=== PATIENT | male | born 1970 | race Caucasian/White ===

== ENCOUNTER 2018-01-17 22:29 | Inpatient (IN) | payer MEDICAID, SELFPAY ==
[2018-01-17 22:29] VITALS: BMI 23.7
--- NOTE | 2018-01-17 22:40 | ED PDOC ---
HPI: Psych/Substance Abuse Time Seen by Provider: 01/17/18 22:39 Chief Complaint (Nursing): Psychiatric Evaluation Chief Complaint (Provider): crisis eval History Per: Patient, Family (daughter) Additional Complaint(s): 47 y/o M presents for crisis eval. Patient has history of IV heroin abuse and states he used earlier today. Patient also admits to intermittent use of cocaine and xanax. Patient states his plan for suicide would be to overdose on heroin. Patient has pain and swelling to left external ear that he noticed today. He offers no other complaints. PMD: none Past Medical History Reviewed: Historical Data, Nursing Documentation, Vital Signs Vital Signs: Last Vital Signs Temp 98.7 F 01/17/18 22:33 Pulse 65 01/17/18 22:33 Resp 18 01/17/18 22:33 BP Pulse Ox 94 L 01/17/18 22:33 - Medical History PMH: Bipolar Disorder, Depression, Diabetes - Surgical History Surgical History: No Surg Hx - Family History Family History: States: No Known Family Hx - Living Arrangements Living Arrangements: With Family - Social History Current smoker - smoking cessation education provided: Yes Alcohol: None Drugs: Cocaine, Opiates (IV heroin), Other (PO xanax) - Home Medications Home Medications: Ambulatory Orders Medication Instructions Recorded Gabapentin [Neurontin] 300 mg PO BID 14 Days cap 10/03/17 traZODone [Desyrel] 100 mg PO HS 14 Days tab 10/03/17 - Allergies Allergies/Adverse Reactions: Allergies Allergy/AdvReac Type Severity Reaction Status Date / Time No Known Allergies Allergy Verified 01/17/18 22:33 Review of Systems ROS Statement: Except As Marked, All Systems Reviewed And Found Negative ENT: Positive for: Other (swelling and pain to left external ear) Psych: Positive for: Suicidal ideation, Other (heroin abuse) Physical Exam - Reviewed Nursing Documentation Reviewed: Yes Vital Signs Reviewed: Yes - Physical Exam Appears: Positive for: Well, Non-toxic, No Acute Distress Skin: Negative for: Rash Eye Exam: Positive for: Normal appearance ENT: Positive for: Other (moderate swelling and erythema noted to left external ear, no mastoid tenderness, canal has moderate amount of cerumen, right ear wnl) Neck: Positive for: Normal Cardiovascular/Chest: Positive for: Regular Rate, Rhythm Respiratory: Positive for: Normal Breath Sounds - Laboratory Results Result Diagrams: 01/17/18 23:07 01/17/18 23:07 - ECG Interpretation Of ECG: Sinus bradycardia 58 bpm, no acute finding, reviewed by PA and ED attending O2 Sat by Pulse Oximetry: 94 Pulse Ox Interpretation: Normal - Other Rad CXR X-Ray: Interpreted by Me, Viewed By Me X-Ray Interpretation: no acute finding Medical Decision Making Medical Decision Makin47 year old here for crisis eval Plan: 1:1 bedside observation Crisis eval CBC CMP BAL UDS UA CXR EKG As per crisis counselor and psychiatrist litigation docket manager, Dr. Silva, patient does meet criteria for admission. Patient agrees to stay and signed himself in. Patient is medically stable for psychiatric admission. Disposition - Clinical Impression Clinical Impression: Depression, Opiate use - Patient ED Disposition Is Patient to be Admitted: Yes - Disposition Disposition Time: 23:42 Condition: FAIR Forms: Osmopure (Sami) - Pt Status Changed To: Hospital Disposition Of: Inpatient - Admit Certification Admit to Inpatient:: After my assessment, the patient will require hospitalization for at least two midnights. This is because of the severity of symptoms shown, intensity of services needed, and/or the medical risk in this patient being treated as an outpatient. Results - Lab Results Lab Results: 01/17/18 01/17/18 01/17/18 23:07 23:07 23:02 WBC 7.3 RBC 5.66 Hgb 12.6 Hct 40.6 MCV 71.8 L MCH 22.2 L MCHC 31.0 L RDW 14.0 Plt Count 235 MPV 8.1 Neut % (Auto) 61.9 Lymph % (Auto) 28.2 [place] % (Auto) 7.9 Eos % (Auto) 1.3 Baso % (Auto) 0.7 Neut # (Auto) 4.5 Lymph # (Auto) 2.0 [place] # (Auto) 0.6 Eos # (Auto) 0.1 Baso # (Auto) 0.1 Sodium 144 Potassium 4.0 Chloride 101 Carbon Dioxide 26 Anion Gap 21 H BUN 18 Creatinine 0.7 L Est GFR ( Amer) > 60 Est GFR (Non-Af Amer) > 60 Random Glucose 141 H Calcium 8.9 Total Bilirubin 0.3 AST 38 ALT 53 Alkaline Phosphatase 85 Total Protein 7.9 Albumin 4.2 Globulin 3.8 Albumin/Globulin Ratio 1.1 Urine Color Mylene Urine Clarity Slighty-cloudy Urine pH 5.0 Ur Specific [place] 1.034 H Urine Protein 30 Urine Glucose (UA) Neg Urine Ketones Trace Urine Blood Negative Urine Nitrate Negative Urine Bilirubin Negative Urine Urobilinogen 2.0 Ur Leukocyte Esterase Neg Urine RBC (Auto) 8 H Urine Microscopic WBC 1 Ur Squamous Epith Cells < 1 Urine Opiates Screen Urine Methadone Screen Ur Barbiturates Screen Ur Phencyclidine Scrn Ur Amphetamines Screen U Benzodiazepines Scrn U Oth Cocaine Metabols U Cannabinoids Screen Alcohol, Quantitative < 10 01/17/18 23:02 WBC RBC Hgb Hct MCV MCH MCHC RDW Plt Count MPV Neut % (Auto) Lymph % (Auto) [place] % (Auto) Eos % (Auto) Baso % (Auto) Neut # (Auto) Lymph # (Auto) [place] # (Auto) Eos # (Auto) Baso # (Auto) Sodium Potassium Chloride Carbon Dioxide Anion Gap BUN Creatinine Est GFR ( Amer) Est GFR (Non-Af Amer) Random Glucose Calcium Total Bilirubin AST ALT Alkaline Phosphatase Total Protein Albumin Globulin Albumin/Globulin Ratio Urine Color Urine Clarity Urine pH Ur Specific [place] Urine Protein Urine Glucose (UA) Urine Ketones Urine Blood Urine Nitrate Urine Bilirubin Urine Urobilinogen Ur Leukocyte Esterase Urine RBC (Auto) Urine Microscopic WBC Ur Squamous Epith Cells Urine Opiates Screen Pending Urine Methadone Screen Negative Ur Barbiturates Screen Pending Ur Phencyclidine Scrn Negative Ur Amphetamines Screen Negative U Benzodiazepines Scrn Pending U Oth Cocaine Metabols Pending U Cannabinoids Screen Pending Alcohol, Quantitative
[2018-01-17 23:10] LABS: BASO # 0.1 K/uL (0.0-0.2); BASO % 0.7 % (0.0-2.0); EOS # 0.1 K/uL (0.0-0.7); EOS % 1.3 % (0.0-4.0); HEMOGLOBIN 12.6 g/dL (12.0-18.0); LYMPH % 28.2 % (20.0-40.0); MEAN CELL VOLUME 71.8 fl (80.0-94.0); MEAN CORPUSCULAR HEMOGLOBIN 22.2 pg (27.0-31.0); MEAN PLATELET VOLUME 8.1 fl (7.2-11.7); MONO # 0.6 K/uL (0.0-0.8); MONO % 7.9 % (0.0-10.0); NEUT # 4.5 K/uL (1.8-7.0); NEUT % 61.9 % (50.0-75.0); RBC 5.66 Mil/uL (4.40-5.90); WHITE BLOOD COUNT 7.3 K/uL (4.8-10.8)
[2018-01-17 23:13] LABS: SQUAMOUS EPITHIAL < 1 /hpf (0-5); URINE BILIRUBIN NEGATIVE (NEGATIVE); URINE BLOOD NEGATIVE (NEGATIVE); URINE CLARITY SLIGHTY-CLOUDY (Clear); URINE COLOR AMBER (YELLOW); URINE GLUCOSE (UA) NEG (Normal); URINE LEUKOCYTE ESTERASE NEG Leu/uL (Negative); URINE PROTEIN 30 mg/dL (NEGATIVE)
[2018-01-17 23:22] LABS: ALB/GLOB RATIO 1.1 (1.0-2.1); ALBUMIN 4.2 g/dL (3.5-5.0); ALT/SGPT 53 U/L (21-72); AST/SGOT 38 U/L (17-59); BLOOD UREA NITROGEN 18 mg/dl (9-20); CALCIUM 8.9 mg/dL (8.4-10.2); GFR AFRICAN-AMERICAN > 60; GFR NON-AFRICAN AMERICAN > 60
[2018-01-17 23:33] LABS: PHENCYCLIDINE, UR NEGATIVE (NEGATIVE)
[2018-01-17 23:44] LABS: BARBITURATES, UR POSITIVE (NEGATIVE); BENZODIAZEPINES, UR NEGATIVE (NEGATIVE); OPIATES, UR POSITIVE (NEGATIVE)
[2018-01-18] MEDS ORDERED: DiphenhydrAMINE 50 mg/ml Inj IM PRN (00:47)
[2018-01-18] MEDS ORDERED: Magnesium Hydroxide Susp 30 ml UD PO PRN (00:47)
[2018-01-18] MEDS ORDERED: Alum-Mag Hydrox-Simethicone Susp (30 mL) PO PRN (00:47)
--- NOTE | 2018-01-18 01:28 | PCM.BM ---
<FainaPamela L - Last Filed: 01/18/18 01:26> Treatment Plan Problems - Problems identified on initial assessmt Hopelessness/Helplessness Date Initiated: 01/18/18 Time Initiated: Assessment reference: NA Status: Active Alteration in Sleep Pattern Date Initiated: 01/18/18 Time Initiated: : Assessment reference: NA Status: Active Self care deificit Date Initiated: 01/18/18 Time Initiated: : Assessment reference: NA Status: Active Treatment assets and liabiliti Patient Assests: cooperative, self-reliant, ADL independent, good support system , negotiates basic needs, cognitively intact <Demian Rivera - Last Filed: 01/23/18 12:07> Family Contact Family involvement: Famliy/SO not involved Family contact: Patient declines to allow family contact at present Family contact name: Pt refused - Goals for Treatment Patient goals for treatment: Pt unable to provide concrete goals at this time. Pt reported feeling "so so" and wanting to be referred for short-term rehab once discharged. Discharge/Continuing Care - Education Needs Education Needs: Patient Medication, Patient Diagnosis/Disease Process, Patient Coping Skills, Patient Placement options, Patient Community resources, Patient Personal Hygiene/Grooming, Patient Aftercare Safety Plan - Discharge Discharge Criteria: Tolerates medication w/o severe side effects, Free of Suicidal thoughts, Free of Homicidal thoughts, Free of paranoid thoughts, Free of agitation, Normal sleep pattern, Ability to care for self, No longer exhibiting s/s of withdrawal, Reduction of target symptoms Discharge to:: Home, Substance Abuse Rehab - Treatment Team Participation Patient/Family/SO Statement: 01/23/18 12:10 Pt presented for team today and reported feeling "so so." Dr. Silva expressed that pt needs time as pt still reports severe depression, but denied ideations and AVT hallucinations at this time. Dr. Silva expressed that the Seroquel at 300mg will help with psychosis and sleep. Methadone maintenance was discussed and referrals to short-term rehab. Pt complained of ongoing stomach pain as continued withdrawal symptoms. Discussed with Family/SO: No Was Patient/Family/SO present at Treatment Team Meeting: Yes <Sabra Silva - Last Filed: 01/23/18 13:36> - Diagnosis (1) Opiate use Status: Acute Interventions: motivational therapy 01/23/18 13:36
--- NOTE | 2018-01-18 08:58 | RAD ---
HISTORY: clearance COMPARISON: 10/02/2016. FINDINGS: LUNGS: The lungs are well inflated and clear. No pleural effusion or pneumothorax. PLEURA: No significant pleural effusion identified, no pneumothorax apparent. CARDIOVASCULAR: Normal. OSSEOUS STRUCTURES: No significant abnormalities. VISUALIZED UPPER ABDOMEN: Normal. OTHER FINDINGS: None. IMPRESSION: No active pulmonary disease.
[2018-01-18] MEDS: Multivitamin With Minerals Tab PO SCH (09:09)
--- NOTE | 2018-01-18 13:02 | PCM.PSYCH ---
Initial Psychiatric Evaluation - Initial Psychiatric Evaluation Type of Admission: Voluntary Legal Status: Capacity Chief Complaint (in patient's own words): I need help I need to stop using Patient's Reaction to Hospitalization: pt requested help History of Present Illness and Precipitating Events: pt is a 47 ys old male with previous diagnosis of opiate use and depression pt was brought to ER by daughter as he verbalized to her that he is experiencing suicidal thoughts with plan to overdose on heroin, pt has multiple hospitalizations, last 10/11 at [facility], non compliant with follow up , relapsed on opiates as he has been feeling depressed hopeless and helpless as he is homeless , with multiple financial difficulties and unable to see hope in future, on the day of evaluation he called his daughter reported having suicidal thoughts with plan to overdose on the unit pt continues to have passive suicidal ideation without active plan , hopeless helpless , low energy denied homicidal ideation denied psychotic symptoms Current Medications: Active Medications Generic Name Dose Route Start Last Admin Trade Name Freq PRN Reason Stop Dose Admin Acetaminophen 650 mg 01/18/18 00:47 Tylenol 325mg Tab PO Q4 PRN Pain, moderate (4-7) Al Hydrox/Mg Hydrox/Simethicone 30 ml 01/18/18 00:47 Maalox Plus 30 Ml PO Q4 PRN Dyspepsia Baclofen 10 mg 01/18/18 13:00 Lioresal PO TID [place] Clonidine HCl 0.1 mg 01/18/18 01:00 01/18/18 09:08 Catapres PO 01/21/18 01:01 0.1 mg Q8 [place] Administration Diphenhydramine HCl 50 mg 01/18/18 00:47 Benadryl PO Q6 PRN Extrapyramidal Symptoms Diphenhydramine HCl 50 mg 01/18/18 00:47 Benadryl IM Q6 PRN Extrapyramidal S/S Unable PO Escitalopram Oxalate 10 mg 01/18/18 12:45 Lexapro PO DAILY [place] Haloperidol 5 mg 01/18/18 00:47 Haldol PO Q4 PRN Agitation Haloperidol Lactate 5 mg 01/18/18 00:47 Haldol IM Q4 PRN Agitation, Unable to Take PO Ibuprofen 800 mg 01/18/18 00:55 Motrin Tab PO 01/21/18 00:56 Q6 PRN Pain, Mild (1-3) Loperamide HCl 2 mg 01/18/18 00:55 Imodium PO Q4 PRN After Loose Bowel Movement Lorazepam 2 mg 01/18/18 00:47 Ativan IM Q4 PRN Anxiety/Agitation,Unable PO Lorazepam 1 mg 01/18/18 00:47 Ativan PO Q4 PRN Anxiety/Agitation Magnesium Hydroxide 30 ml 01/18/18 00:47 Milk Of Magnesia PO HS PRN Constipation Multivitamins/Minerals 1 tab 01/18/18 09:00 01/18/18 09:09 Therapeutic-M Tab PO 1 tab DAILY [place] Administration Past Psychiatric History - Past Psychiatric History Explanation of prior treatment: multiple inpatient hospitalizations, history of non compliance History of ETOH/Drug Use: hx of opiate use Pertinent Medical Hx (Current Medical&Sleep Prob, Allergies): Allergies Allergy/AdvReac Type Severity Reaction Status Date / Time No Known Allergies Allergy Verified 01/17/18 22:33 Mental Status Examination - Personal Presentation Personal Presentation: Looks older than stated age - Affect Affect: Constricted, Depressed - Motor Activity Motor Activity: Psychomotor Retardation - Reliability in Providing Information Reliability in Providing Information: Poor, due to altered mood - Speech Speech: Irrelevant - Mood Mood: Depressed, Anxious - Formal Thought Process Formal Thought Process: Circumstantial - Hallucinations/Delusions Additional comments: denied perceptual disturbances, non elicited - Obsessions/Compulsions Obsessions: No Compulsions: No - Cognitive Functions Orientation: Person, Place Sensorium: Alert Judgement: Imparied, as evidence by: Poor judgement, Imparied, as evidence by: Lack of insight into illness - Risk Risk: Suicidal, Withdrawal, Diminished functioning - Strength & Assets Inventory Strength & Assets Inventory: Life experience - Limitations Additional comments: poor compliance DSM 5 DX - DSM 5 DSM 5 Diagnosis: 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
--- NOTE | 2018-01-18 14:51 | CARD ---
APPROVED REPORT EKG Measurement Heart [id number] <Conclusion> Sinus bradycardia Otherwise normal ECG
--- NOTE | 2018-01-18 16:54 | CP.PCM.CON ---
History of Present Illness - History of Present Illness History of Present Illness: This is a 47 year old male with pmh opioid abuse, cocaine abuse, depression, hepatitis C, DM? (as per review of records), who was seen in the inpatient psych unit today. The patient has no complaints currently and is resting comfortably. Patient denies chest pain, shortness of breath, fevers, chills, nausea, vomiting, diarrhea, headache. All of the patient's and/or family's questions were answered at the bedside. PMH: PMH depression, HEP C, bipolar disorder PSH: denies ALLERGIES: NKDA MEDICATIONS BELOW FH: denies SH: polysubstance abuse per HPI ROS: Pertinent Positives in HPI, all other 12 ROS are negative by me Review of Systems - Review of Systems Review of Systems: A 12 point review of systems was conducted and found to be negative other than in HPI. Past Patient History - Infectious Disease Hx of Infectious Diseases: None - Past Medical History & Family History Past Medical History?: Yes Past Family History: Reviewed and not pertinent - Past Social History Alcohol: None Drugs: Cocaine, Opiates (IV heroin), Other (PO xanax) - CARDIAC Hx Cardiac Disorders: No Hx Hypertension: No - PULMONARY Hx Tuberculosis: No - NEUROLOGICAL HX Cerebrovascular Accident: No Hx Seizures: No - HEENT Hx HEENT Problems: No - RENAL Hx Chronic Kidney Disease: No - ENDOCRINE/METABOLIC Hx Endocrine Disorders: No - HEMATOLOGICAL/ONCOLOGICAL Hx Cancer: No Hx Human Immunodeficiency Virus (HIV): No - INTEGUMENTARY Hx Dermatological Problems: No - MUSCULOSKELETAL/RHEUMATOLOGICAL Hx Musculoskeletal Disorders: No - GASTROINTESTINAL Hx Gastrointestinal Disorders: No - GENITOURINARY/GYNECOLOGICAL Hx Sexually Transmitted Disorders: No - PSYCHIATRIC Hx Anxiety: Yes Hx Depression: Yes Hx Substance Use: Yes - SURGICAL HISTORY Hx Surgeries: No - ANESTHESIA Hx Anesthesia: No Hx Anesthesia Reactions: No Meds Allergies/Adverse Reactions: Allergies Allergy/AdvReac Type Severity Reaction Status Date / Time No Known Allergies Allergy Verified 01/17/18 22:33 - Medications Medications: Current Medications Acetaminophen (Tylenol 325mg Tab) 650 mg PO Q4 PRN PRN Reason: Pain, moderate (4-7) Al Hydrox/Mg Hydrox/Simethicone (Maalox Plus 30 Ml) 30 ml PO Q4 PRN PRN Reason: Dyspepsia Baclofen (Lioresal) 10 mg PO TID [place] Clonidine HCl (Catapres) 0.1 mg PO Q8 [place] Stop: 01/21/18 01:01 Last Admin: 01/18/18 09:08 Dose: 0.1 mg Diphenhydramine HCl (Benadryl) 50 mg PO Q6 PRN PRN Reason: Extrapyramidal Symptoms Diphenhydramine HCl (Benadryl) 50 mg IM Q6 PRN PRN Reason: Extrapyramidal S/S Unable PO Escitalopram Oxalate (Lexapro) 10 mg PO DAILY [facility] Haloperidol (Haldol) 5 mg PO Q4 PRN PRN Reason: Agitation Haloperidol Lactate (Haldol) 5 mg IM Q4 PRN PRN Reason: Agitation, Unable to Take PO Ibuprofen (Motrin Tab) 800 mg PO Q6 PRN PRN Reason: Pain, Mild (1-3) Stop: 01/21/18 00:56 Loperamide HCl (Imodium) 2 mg PO Q4 PRN PRN Reason: After Loose Bowel Movement Lorazepam (Ativan) 2 mg IM Q4 PRN PRN Reason: Anxiety/Agitation,Unable PO Lorazepam (Ativan) 1 mg PO Q4 PRN PRN Reason: Anxiety/Agitation Magnesium Hydroxide (Milk Of Magnesia) 30 ml PO HS PRN PRN Reason: Constipation Multivitamins/Minerals (Therapeutic-M Tab) 1 tab PO DAILY [facility] Last Admin: 01/18/18 09:09 Dose: 1 tab Physical Exam - Additional Findings Additional findings: Physical exam: Constitutional- cooperative, awake, alert Head- NCAT, PERRL Eye- PERRL, EOMI ENT- normal exam, MMM. Neck- normal inspection, supple, no JVD Respiratory- CTAB, no wheezes rales rhonchi Cardiovascular- RRR, +S1, +S2 no MRG GI/Abdominal- normal bowel sounds, soft, no mass, no hsm Skin- warm, dry Extremities Exam- normal capillary refill, normal inspection Neurological Exam- alert, awake, oriented Psych- normal mood, normal affect Results - Vital Signs Recent Vital Signs: Last Vital Signs Temp 96.9 F L 01/18/18 09:00 Pulse 53 L 01/18/18 09:00 Resp 18 01/18/18 09:00 BP 119/69 01/18/18 09:08 Pulse Ox 99 01/18/18 00:28 - Labs Result Diagrams: 01/17/18 23:07 01/17/18 23:07 Labs: Laboratory Results - last 24 hr 01/17/18 01/17/18 01/17/18 23:02 23:02 23:07 WBC RBC Hgb Hct MCV MCH MCHC RDW Plt Count MPV Neut % (Auto) Lymph % (Auto) [place] % (Auto) Eos % (Auto) Baso % (Auto) Neut # (Auto) Lymph # (Auto) [place] # (Auto) Eos # (Auto) Baso # (Auto) Sodium 144 Potassium 4.0 Chloride 101 Carbon Dioxide 26 Anion Gap 21 H BUN 18 Creatinine 0.7 L Est GFR ( Amer) > 60 Est GFR (Non-Af Amer) > 60 Random Glucose 141 H Calcium 8.9 Total Bilirubin 0.3 AST 38 ALT 53 Alkaline Phosphatase 85 Total Protein 7.9 Albumin 4.2 Globulin 3.8 Albumin/Globulin Ratio 1.1 Urine Color Mylene Urine Clarity Slighty-cloudy Urine pH 5.0 Ur Specific [place] 1.034 H Urine Protein 30 Urine Glucose (UA) Neg Urine Ketones Trace Urine Blood Negative Urine Nitrate Negative Urine Bilirubin Negative Urine Urobilinogen 2.0 Ur Leukocyte Esterase Neg Urine RBC (Auto) 8 H Urine Microscopic WBC 1 Ur Squamous Epith Cells < 1 Urine Opiates Screen Positive H Urine Methadone Screen Negative Ur Barbiturates Screen Positive H Ur Phencyclidine Scrn Negative Ur Amphetamines Screen Negative U Benzodiazepines Scrn Negative U Oth Cocaine Metabols Positive H U Cannabinoids Screen Negative Alcohol, Quantitative < 10 01/17/18 23:07 WBC 7.3 RBC 5.66 Hgb 12.6 Hct 40.6 MCV 71.8 L MCH 22.2 L MCHC 31.0 L RDW 14.0 Plt Count 235 MPV 8.1 Neut % (Auto) 61.9 Lymph % (Auto) 28.2 [place] % (Auto) 7.9 Eos % (Auto) 1.3 Baso % (Auto) 0.7 Neut # (Auto) 4.5 Lymph # (Auto) 2.0 [place] # (Auto) 0.6 Eos # (Auto) 0.1 Baso # (Auto) 0.1 Sodium Potassium Chloride Carbon Dioxide Anion Gap BUN Creatinine Est GFR ( Amer) Est GFR (Non-Af Amer) Random Glucose Calcium Total Bilirubin AST ALT Alkaline Phosphatase Total Protein Albumin Globulin Albumin/Globulin Ratio Urine Color Urine Clarity Urine pH Ur Specific [place] Urine Protein Urine Glucose (UA) Urine Ketones Urine Blood Urine Nitrate Urine Bilirubin Urine Urobilinogen Ur Leukocyte Esterase Urine RBC (Auto) Urine Microscopic WBC Ur Squamous Epith Cells Urine Opiates Screen Urine Methadone Screen Ur Barbiturates Screen Ur Phencyclidine Scrn Ur Amphetamines Screen U Benzodiazepines Scrn U Oth Cocaine Metabols U Cannabinoids Screen Alcohol, Quantitative Assessment & Plan - Assessment and Plan (Free Text) Plan: ASSESSMENT/PLAN This is a 47 year old male with pmh opioid abuse, cocaine abuse, depression, hepatitis C, DM? (as per review of records), admitted to psych because of heroin abuse, worsening depression, and suicidal ideation. 1) Heroin abuse - management as per psych 2) Major depressive disorder, recurrent - Tx as per psychiatry 3) Diabetes? - HGA1C elevated in the past - Repeat HGA1C - Glucose minimally elevated here (141) - Start Metformin - Lipid profile 4) Hepatitis C - stable
[2018-01-18] MEDS ORDERED: Trimethobenzamide 200 mg/2 mL Inj IM ONE (23:52)
[2018-01-19] MEDS ORDERED: Trimethobenzamide 200 mg/2 mL Inj IM ONE (00:05)
[2018-01-19 00:21] VITALS: O2SAT 98
[2018-01-19] MEDS ORDERED: Trimethobenzamide 200 mg/2 mL Inj IM PRN (10:11)
[2018-01-19 11:59] LABS: LDL CHOLESTEROL 75 mg/dL (0-129)
[2018-01-19 12:00] LABS: BLOOD UREA NITROGEN 23 mg/dl (9-20); CALCIUM 9.3 mg/dL (8.4-10.2); GFR AFRICAN-AMERICAN > 60; GFR NON-AFRICAN AMERICAN > 60; HDL CHOLESTEROL 33 MG/DL (30-70)
[2018-01-19 12:04] LABS: T4 9.06 ug/dl (5.5-11.0)
[2018-01-19] MEDS: Multivitamin With Minerals Tab PO SCH (13:19)
--- NOTE | 2018-01-19 13:22 | PCM.PYCHPN ---
Psychiatric Progress Note - Psychiatric Progress Note Patient seen today, length of contact: pt evaluated discussed [facility] team chart reviewed Patient Chief Complaint: I am suffering from the withdrawals Problems Identified/Issues Discussed: pt seen in bed , guarded evasive refusing to give information about the amount of substance used, asked pt which barbiturates he has been using , reported only two pills but refusing to give name or quantity, stating used on and off for two days, pt irritable angry dysphoric , depressed , requesting to be discharged , pt has been vomiting all night , discussed with him that he is medically and psychiatricaly unstable for discharge, he reported he does not want to live like this any more, verbalizing passive suicidal ideation without plan or intent on the unit , pt became verbally threatening stating he needs to be discharged right that moment , limited insight and poor judgment Medical Problems: multiple inpatient hospitalizations, history of non compliance DSM 5 Symptoms Update: substance induced mood disorder opiate use diisorder cocaine use disorder sedaive anxiolytic use disorder Medication Change: Yes (start neurontin) Medical Record Reviewed: Yes Mental Status Examination - Cognitive Function Orientation: Person, Place Attention: WNL Concentration: Poor Association: WNL Fund of Knowledge: Poor Decription of patient's judgement and insights: por insight and judgment - Mood Mood: Depressed, Anxious Additional comments: angry - Affect Affect: Constricted, Depressed Additional comments: irritable threatening - Speech Speech: Loud - Formal Thought Process Formal Thought Process: Circumstantial Psychotic Thoughts and Behaviors: pt denied any current psychotic symptoms, non elicited - Suicidal Ideation Suicidal Ideation: No - Homicidal Ideation Homicidal Ideation: No Goal/Treatment Plan - Goal/Treatment Plan Need for Continued Stay: Severe depression anxiety, Discharge may exacerbated symptoms, Failed transitioning Progress Toward Problem(s) and Goals/Treatment Plan: clonidine protocol/ monitor pt for symptoms and signs of withdrawal neurontin 300mg tid , ativan 1mg tid for possible barbiturate withdrawals baclofen tid lexapro 10mg daily motivational group and supportive therapy pt at current mental status danger to self , continues to verbalize passive suicidal ideation, needs to be observed medically as he continues to have episodes of vomiting with the need to observe electrolytes, also possible barbiturates withdrawal with seizure risk pt continues to demand to be discharged, will be referred to screening for involuntary admission as pt is risk to self and needs further stabilization
[2018-01-19] MEDS ORDERED: Potassium Chloride 20 mEq ER Tab PO ONE (14:15)
[2018-01-20] MEDS: Multivitamin With Minerals Tab PO SCH (09:05)
--- NOTE | 2018-01-20 13:37 | PCM.PYCHPN ---
Psychiatric Progress Note - Psychiatric Progress Note Patient seen today, length of contact: pt evaluated discussed [facility], [place] team chart reviewed Patient Chief Complaint: I need help I am depressed Problems Identified/Issues Discussed: pt seen in bed , presenting with depressed and anxious mood , dysphoric and irritable affect, pt requesting to stay in hospital and get the help he needs reported feeling helpless and hopeless , tired of being homeless and using substance, motivational therapy provided , discussed with pt need to be on maintenance treatment and to be linked to inpatient rehab , pt reported non command auditory hallucinations putting him down, discussed starting seroquel pt continues to have passive suicidal ideation without active plan on the unit, poor sleep and poor appetite Medical Problems: multiple inpatient hospitalizations, history of non compliance DSM 5 Symptoms Update: substance induced mood disorder opiate use disoder cocaine induced psychotic disorder cocaine use disorder barbiturate abuse Medication Change: Yes (start seroquel) Medical Record Reviewed: Yes Mental Status Examination - Cognitive Function Orientation: Person, Place Attention: WNL Concentration: Poor Association: WNL Fund of Knowledge: Poor Decription of patient's judgement and insights: por insight and judgment - Mood Mood: Depressed, Anxious - Affect Affect: Constricted, Depressed - Speech Speech: Loud - Formal Thought Process Formal Thought Process: Circumstantial Psychotic Thoughts and Behaviors: pt reported non command auditory hallucinations - Suicidal Ideation Suicidal Ideation: No - Homicidal Ideation Homicidal Ideation: No Goal/Treatment Plan - Goal/Treatment Plan Need for Continued Stay: Severe depression anxiety, Discharge may exacerbated symptoms, Failed transitioning Progress Toward Problem(s) and Goals/Treatment Plan: continue with clonidine protocol neurontin 300mg tid , ativan 1mg tid for possible barbiturate withdrawals baclofen tid discontinue lexapro start seroquel 25mg bid and 100mg qhs motivational group and supportive therapy
[2018-01-21] MEDS: Multivitamin With Minerals Tab PO SCH (09:49)
--- NOTE | 2018-01-21 15:59 | PCM.PYCHPN ---
Psychiatric Progress Note - Psychiatric Progress Note Patient seen today, length of contact: pt evaluated discussed [facility] team chart reviewed Patient Chief Complaint: I have no hope in anything Problems Identified/Issues Discussed: pt seen in bed ,continues to present with depressed mood and affect , anhedonic , low energy , poor appetite reported feeling helpless and hopeless , due to being homeless and due to lack of social support , encouraged pt to attend groups also discussed increasing seroquel pt continues to have passive suicidal ideation without active plan on the unit, , reported clearing off of the auditory hallucinations motivational therapy provided, discussed referral to inpatient rehab on discharge Medical Problems: multiple inpatient hospitalizations, history of non compliance DSM 5 Symptoms Update: 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 cocaine use disorder opiate use disorder bipolar disorder depressed Medication Change: Yes (increase seroquel ) Medical Record Reviewed: Yes Mental Status Examination - Cognitive Function Orientation: Person, Place Attention: WNL Concentration: Poor Association: WNL Fund of Knowledge: Poor Decription of patient's judgement and insights: por insight and judgment - Mood Mood: Depressed, Anxious - Affect Affect: Constricted, Depressed - Speech Speech: Soft - Formal Thought Process Formal Thought Process: Circumstantial Psychotic Thoughts and Behaviors: pt reported non command auditory hallucinations - Suicidal Ideation Suicidal Ideation: No - Homicidal Ideation Homicidal Ideation: No Goal/Treatment Plan - Goal/Treatment Plan Need for Continued Stay: Severe depression anxiety, Discharge may exacerbated symptoms, Failed transitioning Progress Toward Problem(s) and Goals/Treatment Plan: continue with clonidine protocol neurontin 300mg tid , baclofen tid seroquel 25mg bid and 200mg qhs motivational group and supportive therapy
[2018-01-22 09:12] VITALS: RESP 18
[2018-01-22] MEDS: Multivitamin With Minerals Tab PO SCH (09:12)
--- NOTE | 2018-01-22 16:00 | PCM.PYCHPN ---
Psychiatric Progress Note - Psychiatric Progress Note Patient seen today, length of contact: pt evaluated discussed [facility] team chart reviewed Patient Chief Complaint: I am trying to help myself Problems Identified/Issues Discussed: pt on evaluation, more visible on the unit, more interactive with staff and other patients, reported mood less depressed and interested in getting himself out of the current situation, , reported partial clearing off of the auditory hallucinations , non command in nature, no reported side effects of medications motivational therapy provided, discussed referral to inpatient rehab on discharge Medical Problems: multiple inpatient hospitalizations, history of non compliance DSM 5 Symptoms Update: 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 opiate use continous bipolar disorder depressed Medication Change: Yes (increase seroquel ) Medical Record Reviewed: Yes Mental Status Examination - Cognitive Function Orientation: Person, Place Attention: WNL Concentration: Poor Association: WNL Fund of Knowledge: Poor Decription of patient's judgement and insights: por insight and judgment - Mood Mood: Depressed, Anxious - Affect Affect: Constricted, Depressed - Speech Speech: Soft - Formal Thought Process Formal Thought Process: Circumstantial Psychotic Thoughts and Behaviors: pt reported non command auditory hallucinations - Suicidal Ideation Suicidal Ideation: No - Homicidal Ideation Homicidal Ideation: No Goal/Treatment Plan - Goal/Treatment Plan Need for Continued Stay: Severe depression anxiety, Discharge may exacerbated symptoms, Failed transitioning Progress Toward Problem(s) and Goals/Treatment Plan: discontinue baclofen neurontin 300mg tid , seroquel 25mg bid and 250mg qhs motivational group and supportive therapy
[2018-01-23 09:11] VITALS: BP 134/77; PULSE 63; TEMP 97.7
[2018-01-23] MEDS: Multivitamin With Minerals Tab PO SCH (09:35)
--- NOTE | 2018-01-23 13:49 | PCM.PYCHDC ---
Mental Status Examination - Mental Status Examination Orientation: Person, Place, Situation Memory: Intact Mood: Neutral Affect: Broad Speech: Appropriate Association: WNL Fund of Knowledge: WNL Formal Thought Process: No Impairment Description of patient's judgement and insight: por insight and judgment Psychotic Thoughts and Behaviors: pt denied any current perceptual disturbances, non elicited Suicidal Ideation: No Current Homicidal Ideation?: No Discharge Summary - Discharge Note Reason for Hospitalization: pt is a 47 ys old male with previous diagnosis of opiate use and depression pt was brought to ER by daughter as he verbalized to her that he is experiencing suicidal thoughts with plan to overdose on heroin, pt has multiple hospitalizations, last 10/[address] [facility], non compliant with follow up , relapsed on opiates as he has been feeling depressed hopeless and helpless as he is homeless , with multiple financial difficulties and unable to see hope in future, on the day of evaluation he called his daughter reported having suicidal thoughts with plan to overdose on the unit pt continues to have passive suicidal ideation without active plan , hopeless helpless , low energy denied homicidal ideation denied psychotic symptoms Consultations:: List each consultation separately and include: 1. Reason for request. 2. Findings. 3. Follow-up Summary of Hospital Course include:: 1. Description of specific treatment plan utilized for patients during their course of treatmen. 2. Summarize the time- course for resolution of acute symptoms and/or regressed behaviors. 3. Describe issues identified and worked on during hospitalization. 4. Describe medication utilized. 5. Describe medical problems identified and treated. 6. Reassessment of suicide risk Summary of Hospital Course: pt on admission was started on clonidine protocol withdrawal and ativan for barbiturates withdrawal pt was started on seroquel which was up titrated gradually for depression motivational therapy provided and pt was advised to be stated on maintenance methadone treatment pt was to be referred to inpatient rehab , pt however requested to leave against medical advise pt was advised about the risk of relapse and possible overdose , pt understood the risk and requested to be discharged on discharge mental status was stable, pt denied suicidal or homicidal ideation denied perceptual disturbances - Diagnosis (1) Opiate use Current Visit: Yes Status: Acute - Final Diagnosis (DSM 5) Condition upon Discharge: FAIR DSM 5: 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
== END 2018-01-23 15:15 | disposition left against medical advice (07) | DRG 746 ==
LOC: H.ER 22:29 → H.ERHOLD 23:42 → H.PSYCH 01-18 00:40
PROVIDERS: ADMIT Psychiatry & Neurology Psychiatry; ATTEND Psychiatry & Neurology Psychiatry
PROC: HZ57ZZZ Individual Psychotherapy for Substance Abuse Treatment, Motivational Enhancement (ICD-10-PCS; principal; 2018-01-17)
PROC: HZ59ZZZ Individual Psychotherapy for Substance Abuse Treatment, Supportive (ICD-10-PCS; 2018-01-17)
PROC: GZHZZZZ Group Psychotherapy (ICD-10-PCS; 2018-01-17)
DX: F11.14 Opioid abuse with opioid-induced mood disorder (principal); B19.20 Unspecified viral hepatitis C without hepatic coma; F14.10 Cocaine abuse, uncomplicated; R45.851 Suicidal ideations; Z59.0 Homelessness; Z91.19 Patient's noncompliance with other medical treatment and regimen; F13.10 Sedative, hypnotic or anxiolytic abuse, uncomplicated; F31.9 Bipolar disorder, unspecified; F17.200 Nicotine dependence, unspecified, uncomplicated